=== PATIENT | female | born 1935 | race Caucasian/White ===

== ENCOUNTER 2017-05-22 08:14 | Emergency (ER) | payer MEDICARE, OTHER ==
[~2017-05-22] VITALS: Ht 154.9 cm; Wt 68.0 kg
[~2017-05-22 08:14] MED LIST: ANAS1; ASPI325; ASPI325 PO; CALCAVITD PO; CALCAVITDA; ERGO50000; ERGO50000 PO; FISH1000 PO; FOLI400; FURO20 PO; GLUC500 PO; HYDCHL25; LOSA50 PO; METO50ER; MULVIT PO; MULVITA; NEBI10 PO; POTCHL10ER; ROSU10TA; SIMV40 PO
[2017-05-22 08:38] LABS: BASOPHILS ABSOLUTE AUTO 0.03 K/mm3 (0.00-0.23); BASOPHILS PERCENT AUTO 0 % (0-2); EOSINOPHILS ABSOLUTE AUTO 0.21 K/mm3 (0.00-0.68); EOSINOPHILS PERCENT AUTO 2 % (0-6); Hematocrit 39.3 % (33.0-51.0); Hemoglobin 12.5 g/dL (11.5-16.0); IMMATURE GRAN ABSOLUTE AUTO 0.03 K/mm3 (0.00-0.10); IMMATURE GRAN PERCENT AUTO 0 % (0-1); LYMPHOCYTES ABSOLUTE AUTO 2.92 K/mm3 (0.84-5.20); LYMPHOCYTES PERCENT AUTO 24 % (21-46); MONOCYTES ABSOLUTE AUTO 0.85 K/mm3 (0.16-1.47); MONOCYTES PERCENT AUTO 7 % (4-13); Mean Corpuscular HGB Conc 31.8 g/dL (31.5-36.5); Mean Corpuscular Volume 95 fL (80-100); Mean Platelet Volume 11.2 fL (9.1-12.4); NEUTROPHILS ABSOLUTE AUTO 8.35 K/mm3 (1.96-9.15); NEUTROPHILS PERCENT AUTO 67 % (41-73); Platelet Count 242 K/mm3 (150-400); RDW Coefficient Variation 13.1 % (11.7-14.2); RDW Standard Deviation 45.4 fL (35.1-46.3); Red Blood Cell Count 4.16 M/mm3 (3.80-5.20); White Blood Cell Count 12.39 K/mm3 (4.00-11.30)
[2017-05-22] MEDS ORDERED: SPIR25 PO (08:57)
[2017-05-22 09:04] LABS: Alanine Aminotransfer (ALT/SGP 24 U/L (12-78); Albumin, Blood 3.6 g/dL (3.4-5.0); Alk Phos 45 U/L (50-136); Anion Gap 7 mmol/L (6-16); Aspartate Aminotrans (AST/SGOT 19 U/L (12-37); Bilirubin, Total 0.9 mg/dL (0.1-1.0); Blood Urea Nitrogen 21 mg/dL (8-24); Bun/Creatinine Ratio 25.3 (12.0-20.0); CO2, Blood 29 mmol/L (21-32); Calcium, Blood 9.7 mg/dL (8.5-10.1); Chloride, Blood 104 mmol/L (98-108); Creatinine, Blood 0.83 mg/dL (0.40-1.00); Globulin, Blood 3.6 g/dL (2.2-4.0); Glomerular Filtration Rate >60 (60-); Glucose, Blood 95 mg/dL (70-99); Potassium, Blood 4.2 mmol/L (3.5-5.5); Sodium, Blood 140 mmol/L (136-145); Total Protein, Blood 7.2 g/dL (6.4-8.2); Troponin I <0.015 ng/mL (0.000-0.040)
== END 2017-05-22 13:26 | disposition home or self-care (01) ==
LOC: ER 08:14
PROVIDERS: Emergency Medicine
DX: R07.9 Chest pain, unspecified (principal); I25.10 Atherosclerotic heart disease of native coronary artery without angina pectoris; I25.2 Old myocardial infarction; Z98.61 Coronary angioplasty status; Z90.49 Acquired absence of other specified parts of digestive tract; Z87.891 Personal history of nicotine dependence; Z88.8 Allergy status to other drugs, medicaments and biological substances; Z88.1 Allergy status to other antibiotic agents; Z79.899 Other long term (current) drug therapy; Z79.82 Long term (current) use of aspirin
CPT/HCPCS: 36415; 71046; 80053; 83880; 84484; 85025; 93005; 93010; 99284

== ENCOUNTER 2018-12-09 18:24 | Emergency (ER) | payer MEDICARE, OTHER ==
[~2018-12-09] VITALS: Ht 154.9 cm; Wt 63.5 kg
[~2018-12-09 18:24] MED LIST changes: +SPIR25 PO
[2018-12-09 18:50] LABS: Source, Urine Catheter
[2018-12-09] MEDS ORDERED: Zocor20 MG PO (18:54)
[2018-12-09 18:55] LABS: Appearance, Urine Clear (Clear); Bilirubin, Urine Neg (Neg); Blood, Urine 2+ (Neg); Color, Urine Yellow (P-Yellow); Glucose Qualitative, Urine Neg (Neg); Ketones, Urine Neg (Neg); Leukocyte Esterase, Urine Neg (Neg); Nitrite, Urine Neg (Neg); Protein, Urine Neg (Neg); Urobilinogen, Urine NORM (Normal)
[2018-12-09] MEDS ORDERED: IBUP400 PO (18:56)
[2018-12-09 18:58] LABS: BASOPHILS ABSOLUTE AUTO 0.03 K/mm3 (0.00-0.23); BASOPHILS PERCENT AUTO 0 % (0-2); EOSINOPHILS ABSOLUTE AUTO 0.04 K/mm3 (0.00-0.68); EOSINOPHILS PERCENT AUTO 0 % (0-6); Hematocrit 37.4 % (33.0-51.0); Hemoglobin 12.1 g/dL (11.5-16.0); IMMATURE GRAN ABSOLUTE AUTO 0.05 K/mm3 (0.00-0.10); IMMATURE GRAN PERCENT AUTO 1 % (0-1); LYMPHOCYTES ABSOLUTE AUTO 1.68 K/mm3 (0.84-5.20); LYMPHOCYTES PERCENT AUTO 16 % (21-46); MONOCYTES ABSOLUTE AUTO 0.94 K/mm3 (0.16-1.47); MONOCYTES PERCENT AUTO 9 % (4-13); Mean Corpuscular HGB 30.1 pg (26.0-34.0); Mean Corpuscular HGB Conc 32.4 g/dL (31.5-36.5); Mean Corpuscular Volume 93 fL (80-100); NEUTROPHILS PERCENT AUTO 75 % (41-73); Platelet Count 208 K/mm3 (150-400); RDW Coefficient Variation 12.6 % (11.7-14.2); RDW Standard Deviation 43.5 fL (35.1-46.3); Red Blood Cell Count 4.02 M/mm3 (3.80-5.20); White Blood Cell Count 10.84 K/mm3 (4.00-11.30)
[2018-12-09 19:11] LABS: Albumin, Blood 3.3 g/dL (3.4-5.0); Albumin/Globulin Ratio 0.8 (0.8-1.8); Bilirubin, Total 0.9 mg/dL (0.1-1.0); Bun/Creatinine Ratio 22.2 (12.0-20.0); Calcium, Blood 9.1 mg/dL (8.5-10.1); Creatinine, Blood 0.95 mg/dL (0.40-1.00); Globulin, Blood 3.9 g/dL (2.2-4.0); Potassium, Blood 4.1 mmol/L (3.5-5.5); Total Protein, Blood 7.2 g/dL (6.4-8.2)
[2018-12-09 19:31] LABS: Squamous Epithelial Cells Few /hpf (Few); White Blood Cells, Urine 0-2 /hpf (0-5)
[2018-12-09 19:32] LABS: Bacteria Few /hpf
[2018-12-09] MEDS ORDERED: BENZ100A PO (20:17)
[2018-12-09] MEDS ORDERED: Zithromax250 MG PO (20:17)
== END 2018-12-09 21:42 | disposition home or self-care (01) ==
LOC: ER 18:24
PROVIDERS: Emergency Medicine
DX: J20.8 Acute bronchitis due to other specified organisms (principal); Z88.8 Allergy status to other drugs, medicaments and biological substances; Z79.899 Other long term (current) drug therapy; Z79.82 Long term (current) use of aspirin; I10 Essential (primary) hypertension; Z85.3 Personal history of malignant neoplasm of breast; I25.2 Old myocardial infarction; E78.00 Pure hypercholesterolemia, unspecified; I25.10 Atherosclerotic heart disease of native coronary artery without angina pectoris; Z87.891 Personal history of nicotine dependence
CPT/HCPCS: 36415; 71046; 80053; 81001; 85025; 93005; 93010; 96360; 99284-25; J7030; P9612

== ENCOUNTER → 2018-12-23 | Outpatient (CLI) | payer MEDICARE, OTHER ==
[~2018-12-23] MED LIST changes: +BENZ100A PO; +IBUP400 PO; +Zithromax250 MG PO; +Zocor20 MG PO
[2018-12-23 10:52] LABS: Source, Urine Clean Catch
[2018-12-23 13:50] LABS: Bilirubin, Urine Neg (Neg); Blood, Urine Neg (Neg); Glucose Qualitative, Urine Neg (Neg); Ketones, Urine Neg (Neg); Leukocyte Esterase, Urine 2+ (Neg); Nitrite, Urine Neg (Neg); Protein, Urine Neg (Neg); Specific Gravity, Urine 1.015 (1.003-1.022); Urobilinogen, Urine NORM (Normal)
[2018-12-23 14:51] LABS: Appearance, Urine Clear (Clear); Color, Urine Yellow (P-Yellow)
[2018-12-23 14:53] LABS: Red Blood Cells, Urine 0-2 /hpf (0-2)
[2018-12-23 14:54] LABS: Bacteria Rare /hpf; Squamous Epithelial Cells Rare /hpf (Few)
== END | disposition home or self-care (01) ==
LOC: LAB SRC 10:49 → LAB SHORT 10:49
PROVIDERS: Internal Medicine
DX: R31.29 Other microscopic hematuria (principal); R82.90 Unspecified abnormal findings in urine
CPT/HCPCS: 81001; 87086; 88108

== ENCOUNTER 2020-12-16 10:31 | Emergency (ER) | payer MEDICARE, OTHER ==
[~2020-12-16] VITALS: Ht 154.9 cm; Wt 65.8 kg
[2020-12-16 11:02] LABS: Mean Corpuscular HGB Conc 32.2 g/dL (31.5-36.5); White Blood Cell Count 7.39 K/mm3 (4.00-11.30)
[2020-12-16 11:13] LABS: BASOPHILS ABSOLUTE AUTO 0.07 K/mm3 (0.00-0.23); BASOPHILS PERCENT AUTO 1 % (0-2); EOSINOPHILS ABSOLUTE AUTO 0.17 K/mm3 (0.00-0.68); EOSINOPHILS PERCENT AUTO 2 % (0-6); Hematocrit 40.1 % (33.0-51.0); Hemoglobin 12.9 g/dL (11.5-16.0); IMMATURE GRAN ABSOLUTE AUTO 0.03 K/mm3 (0.00-0.10); IMMATURE GRAN PERCENT AUTO 0 % (0-1); LYMPHOCYTES ABSOLUTE AUTO 2.57 K/mm3 (0.84-5.20); LYMPHOCYTES PERCENT AUTO 35 % (21-46); MONOCYTES ABSOLUTE AUTO 0.54 K/mm3 (0.16-1.47); MONOCYTES PERCENT AUTO 7 % (4-13); Mean Corpuscular HGB 29.8 pg (26.0-34.0); Mean Corpuscular Volume 93 fL (80-100); NEUTROPHILS ABSOLUTE AUTO 4.01 K/mm3 (1.96-9.15); NEUTROPHILS PERCENT AUTO 54 % (41-73); RDW Coefficient Variation 12.9 % (11.7-14.2); RDW Standard Deviation 44.4 fL (35.1-46.3); Red Blood Cell Count 4.33 M/mm3 (3.80-5.20)
[2020-12-16 11:14] LABS: Mean Platelet Volume 11.2 fL (9.1-12.4); Platelet Count 174 K/mm3 (150-400)
[2020-12-16 11:18] LABS: Alanine Aminotransfer (ALT/SGP 24 U/L (12-78); Albumin, Blood 3.7 g/dL (3.4-5.0); Albumin/Globulin Ratio 1.1 (0.8-1.8); Alk Phos 46 U/L (50-136); Anion Gap 6 mmol/L (6-16); Aspartate Aminotrans (AST/SGOT 21 U/L (12-37); Bilirubin, Total 0.6 mg/dL (0.1-1.0); Blood Urea Nitrogen 18 mg/dL (8-24); Bun/Creatinine Ratio 21.9 (12.0-20.0); CO2, Blood 26 mmol/L (21-32); Calcium, Blood 9.4 mg/dL (8.5-10.1); Chloride, Blood 107 mmol/L (98-108); Creatinine, Blood 0.82 mg/dL (0.40-1.00); Globulin, Blood 3.4 g/dL (2.2-4.0); Glomerular Filtration Rate >60 (60-); Glucose, Blood 81 mg/dL (70-99); Potassium, Blood 3.8 mmol/L (3.5-5.5); Sodium, Blood 139 mmol/L (136-145); Total Protein, Blood 7.1 g/dL (6.4-8.2)
[2020-12-16 11:41] LABS: Source, Urine Voided
[2020-12-16 12:03] LABS: Appearance, Urine Clear (Clear); Bilirubin, Urine Neg (Neg); Blood, Urine Neg (Neg); Glucose Qualitative, Urine Neg (Neg); Ketones, Urine Neg (Neg); Leukocyte Esterase, Urine 2+ (Neg); Nitrite, Urine Neg (Neg); Protein, Urine Neg (Neg); Specific Gravity, Urine 1.005 (1.003-1.022); Urobilinogen, Urine NORM (Normal); pH, Urine 6.5 (5.0-8.0)
[2020-12-16 12:37] LABS: Color, Urine Pale Yellow (P-Yellow)
[2020-12-16 12:50] LABS: Bacteria Not Seen /hpf; Red Blood Cells, Urine Not Seen /hpf (0-2); Squamous Epithelial Cells Rare /hpf (Few); Transitional Epithelial Cells Rare /hpf (0-Rare); White Blood Cells, Urine 0-2 /hpf (0-5)
[2020-12-16] MEDS ORDERED: MECL25 PO (13:12)
[2020-12-16] MEDS ORDERED: ONDA4ODT MM (13:12)
== END 2020-12-16 14:05 | disposition home or self-care (01) ==
LOC: ER 10:31
PROVIDERS: Emergency Medicine
DX: R42 Dizziness and giddiness (principal); Z88.8 Allergy status to other drugs, medicaments and biological substances; Z79.899 Other long term (current) drug therapy
CPT/HCPCS: 70450; 80053; 81001; 85025; 87086; 93005; 93010; 96374; 99284-25; A9270; J2405

== ENCOUNTER 2023-06-21 11:47 | Observation (INO) | payer MEDICARE, OTHER ==
[~2023-06-21] VITALS: Ht 154.9 cm; Wt 58.9 kg
[~2023-06-21 11:47] MED LIST changes: +MECL25 PO; +ONDA4ODT MM
[2023-06-21 12:32] LABS: BASOPHILS ABSOLUTE AUTO 0.04 K/mm3 (0.00-0.23); BASOPHILS PERCENT AUTO 1 % (0-2); EOSINOPHILS PERCENT AUTO 2 % (0-6); Hematocrit 39.6 % (33.0-51.0); Hemoglobin 12.9 g/dL (11.5-16.0); IMMATURE GRAN ABSOLUTE AUTO 0.01 K/mm3 (0.00-0.10); IMMATURE GRAN PERCENT AUTO 0 % (0-1); LYMPHOCYTES PERCENT AUTO 24 % (21-46); MONOCYTES ABSOLUTE AUTO 0.36 K/mm3 (0.16-1.47); MONOCYTES PERCENT AUTO 5 % (4-13); Mean Corpuscular HGB 29.8 pg (26.0-34.0); Mean Corpuscular HGB Conc 32.6 g/dL (31.5-36.5); Mean Corpuscular Volume 92 fL (80-100); Mean Platelet Volume 10.8 fL (9.1-12.4); NEUTROPHILS ABSOLUTE AUTO 4.68 K/mm3 (1.96-9.15); NEUTROPHILS PERCENT AUTO 69 % (41-73); Platelet Count 241 K/mm3 (150-400); RDW Coefficient Variation 12.8 % (11.7-14.2); Red Blood Cell Count 4.33 M/mm3 (3.80-5.20); White Blood Cell Count 6.79 K/mm3 (4.00-11.30)
[2023-06-21 12:46] LABS: Albumin, Blood 3.5 g/dL (3.4-5.0); Bilirubin, Total 0.6 mg/dL (0.1-1.0); Bun/Creatinine Ratio 28.5 (12.0-20.0); Calcium, Blood 9.8 mg/dL (8.5-10.1); Creatinine, Blood 0.91 mg/dL (0.40-1.00); Globulin, Blood 3.6 g/dL (2.2-4.0); Potassium, Blood 4.2 mmol/L (3.5-5.5); Total Protein, Blood 7.1 g/dL (6.4-8.2)
[2023-06-21 13:36] LABS: Free Thyroxine 1.32 ng/dL (0.70-1.60); Thyroid Stimulating Hormone 2.5 uIU/mL (0.360-4.800)
[2023-06-21] MEDS ORDERED: NS 1,000 ML IV ONE ×2 (14:32→15:08)
[2023-06-21] MEDS ORDERED: Heparin Sodium 1000 Units/ML 10ML MDV ONE (14:32)
[2023-06-21] MEDS ORDERED: CeFAZolin Sodium 1000 mg Vial ONE (14:32)
[2023-06-21] MEDS ORDERED: Ondansetron HCl 2 MG / ML 2ML Vial IV PRN (14:35)
[2023-06-21] MEDS ORDERED: FLU VACC QS2023-24(6MOS UP)/PF 60 MCG/0.5 ML SYRINGE IM SCH (14:35)
[2023-06-21] MEDS ORDERED: Midazolam HCl 1MG / ML 2ML Vial ONE (15:07)
[2023-06-21] MEDS ORDERED: CeFAZolin Sodium 2,000 MG VIAL ONE (15:07)
[2023-06-21] MEDS ORDERED: FentaNYL Citrate 50 MCG/ML 2 ML Injection ONE (15:08)
[2023-06-21] MEDS ORDERED: NS 100 ML IV ONE (15:11)
[2023-06-21 17:33] VITALS: BP 141/57
[2023-06-21] MEDS ORDERED: LEVSOD75 PO (17:49)
[2023-06-21 18:00] VITALS: BP 152/75
[2023-06-21] MEDS ORDERED: Ergocalciferol 50000 Intn'l Units PO SCH (18:05)
--- NOTE | 2023-06-21 18:38 | NUR ---
PT ARRIVED TO PCU 11 FROM TELEVISION ANNOUNCER APROX 1730. PT IS A&OX4 WITH FAMILY AT BEDSIDE. L CHEST PACEMAKER SITE WNL. SEE DOCUMENTED VITAL SIGNS AND ASSESSMENT. PT EDUCATED ON MOVEMENT RESTRICTIONS FOR HER L ARM, PT AND FAMILY VERBALIZE UNDERSTANDING. PT ORIENTED TO ROOM, CALL LIGHT AND UNIT ROUTINES. PT IS ABLE TO USE CALL LIGHT FOR NEEDS AND MAKE NEEDS KNOWN. WILL CONTINUE TO MONITOR AND GIVE REPORT TO NOC SHIFT RN.
[2023-06-21 19:50] VITALS: BP 132/54
[2023-06-21] MEDS ORDERED: SIMVASTATIN 20 MG TAB PO SCH (21:00)
[2023-06-22 00:10] VITALS: BP 124/63
[2023-06-22] MEDS ORDERED: Acetaminophen 325 MG TABLET PO PRN (01:00)
[2023-06-22] MEDS ORDERED: CeFAZolin Sodium 1,000 MG in NS 50 ML IV SCH (03:00)
[2023-06-22 04:05] VITALS: BP 125/53
[2023-06-22] MEDS ORDERED: Levothyroxine Sodium 0.075 MG Tab PO SCH (06:00)
--- NOTE | 2023-06-22 06:03 | NUR ---
SHIFT SUMMARY. PT HAS BEEN DOING WELL THROUGHOUT SHIFT OVERALL. AOX4, PLEASANT, COOPERATIVE WITH CARE. NO ACUTE CHANGES. VITALS STABLE. TELE ON THROUGHOUT SHIFT, RUNNING AV PACED IN 60s, NO EVENTS THUS FAR. PT DENIES ANY PAIN AT PACER SITE OTHER THAN FEELING LIKE "ONE OF THE STITCHES IS TOO TIGHT" WHICH SHE DID SHARE WITH MD LAST NIGHT WHEN HE VISITED. DRESSING REMAINS C/D/I. SOME BACK PAIN REPORTED THIS MORNING WHICH WAS ALLEVIATED WITH REPOSITIONING/EXTRA PILLOWS AND PRN TYLENOL. PT CALLS APPROPRIATELY, ABLE TO MAKE NEEDS KNOWN. BED LOCKED IN LOWEST POSITION. CALL LIGHT LEFT WITHIN REACH. CONTINUING TO MONITOR.
[2023-06-22 07:23] VITALS: BP 136/66
--- NOTE | 2023-06-22 07:48 | NUR ---
Pt awake and alert at time of bedside shift report. States has some back pain while in bed. Vital signs taken, noted stable. Telemetry shows paced AV at 61 bpm. She was assisted without difficulty to the recliner chair. Dr. Olmos did see the patient. Device interrogation done, and troponin lab was drawn. Trending troponins at this time. Dr. Hummel also here to see the patient.
[2023-06-22] MEDS ORDERED: Losartan Potassium 50 MG Tab PO SCH (09:00)
[2023-06-22] MEDS ORDERED: Calcium 500 MG/Vit D 200 Units Tab PO SCH (09:00)
[2023-06-22] MEDS ORDERED: Heparin Sodium,Porcine 5,000 UNIT/0.5 ML SDV SC SCH (09:00)
[2023-06-22] MEDS ORDERED: Multivitamins/Minerals TAB PO SCH (09:00)
[2023-06-22] MEDS ORDERED: Furosemide 20 MG Tab PO SCH (09:00)
[2023-06-22] MEDS ORDERED: Aspirin 325 MG Tab PO SCH (09:00)
--- NOTE | 2023-06-22 11:13 | NUR ---
Pt and her son Larry were educated on the discharge instructions and follow up appointments scheduled with PCP, wound check, and pacemaker clinic. She was taken out in a wheelchair to private vehicle driven by her son.
== END 2023-06-22 11:00 | disposition home or self-care (01) ==
LOC: ER 11:47 → PCU 11:48
PROVIDERS: Emergency Medicine; Student in an Organized Health Care Education/Training Program; ADMIT Internal Medicine
DX: I49.5 Sick sinus syndrome (principal); I44.30 Unspecified atrioventricular block; I10 Essential (primary) hypertension; I25.2 Old myocardial infarction; I25.10 Atherosclerotic heart disease of native coronary artery without angina pectoris; E78.5 Hyperlipidemia, unspecified; Z95.5 Presence of coronary angioplasty implant and graft; Z72.0 Tobacco use; Z88.8 Allergy status to other drugs, medicaments and biological substances; Z79.82 Long term (current) use of aspirin; Z79.899 Other long term (current) drug therapy
CPT/HCPCS: 33208; 36415; 71045; 71046; 76937; 80053; 84439; 84443; 84484; 85025; 93005; 93010; 93308; 93321; 96372; 96374; 99152; 99153; 99285-25; A9270; C1785; C1894; C1898; G0378; J0690; J1644; J2250; J3010; J7030; J7040